=== PATIENT | male | born 1955 | race Caucasian/White ===

== ENCOUNTER 2017-06-14 07:58 | Observation (INO) | payer SELFPAY ==
[~2017-06-14] VITALS: Ht 172.7 cm; Wt 65.0 kg
[~2017-06-14 07:58] MED LIST: ALPR1TAB3 PO; ATOR10 PO; CARV6.25 PO; ECOT81TA2 PO; GABA100C4 PO; TAMS0.4C67 PO; XANA2TAB2 PO
[2017-06-14 08:04] VITALS: BP 128/85; PULSE 90; RESP 15; TEMP 98.2; O2SAT 98
[2017-06-14] MEDS ORDERED: SODIUM CHLOR 0.9% 1000 ML INJ 1,000 ML IV ONE (08:14)
[2017-06-14 08:15] VITALS: BP 142/63; PULSE 84; RESP 16; O2SAT 98
[2017-06-14] MEDS ORDERED: SODIUM CHLORIDE 0.9% FLUSH 10 ML FLUSH IVF PRN (08:15)
[2017-06-14 08:19] VITALS: BP_SYST 125; BP_SYST 142; BP_DIAS 60; BP_DIAS 63; RESP 15
--- NOTE | 2017-06-14 08:23 | PD ---
HPI Chief Complaint: Syncope Time Seen by Provider: 08:03 Travel History International Travel<30 days: No Contact w/Intl Traveler<30days: No Traveled to known affect area: No History of Present Illness HPI The patient is a 62-year-old male who presents to the emergency department after possible seizure or syncopal episode. The patient was at work earlier today, sitting down, when he suddenly became lightheaded and dizzy. The patient cannot recall falling to the floor, according to EMS the patient was caught prior to falling by a coworker. The patient was noted to have abrasions to the extensor surface of the left hand and the right elbow. He denies striking his head, but does not recall the event. He does complain of mild headache. He denied any palpitations, shortness of breath, nausea, vomiting, or diaphoresis prior to the event. He did have a similar episode in 2013, is unsure if he had a syncopal episode or seizure at that time, however, was not placed on antiseizure medication. He does not currently have a primary physician. He does complain of a mild headache as well as abrasions to left hand and right elbow. The patient states his last tetanus shot was in 2013. Symptoms are moderate. There are no current alleviating or exacerbating factors. He does state that the dizziness has improved since he arrived to the emergency department, however, he has not returned to baseline. He denies biting his tongue or any urinary incontinence with the event. According to EMS the patient also had a small amount of twitching after the event, unsure if this was related to syncope or seizure. PFSH Past Medical History Arthritis: Yes Autoimmune Disease: No Anxiety: Yes Depression: Yes Heart Rhythm Problems: No Cancer: No Cardiac Catheterization: No Cardiovascular Problems: No High Cholesterol: Yes Chest Pain: No Congestive Heart Failure: No Diabetes: No Diminished Hearing: No Endocrine: No Gastrointestinal Disorders: No Glaucoma: No Genitourinary: No Hepatitis: Yes ( C) Hiatal Hernia: No Hypertension: Yes Immune Disorder: No Musculoskeletal: Yes Neurologic: Yes Psychiatric: Yes Reproductive: No Respiratory: No Integumentary: No Migraines: Yes Seizures: Yes Sickle Cell Disease: No Thyroid Disease: No Past Surgical History Coronary Artery Bypass Graft: No Oral Surgery: Yes Thoracic Surgery: No Social History Alcohol Use: No Tobacco Use: Yes (6 cigs/day) Substance Use: No Allergies-Medications (Allergen,Severity, Reaction): Coded Allergies: morphine (Unverified Allergy, Severe, THROAT CLOSES, 10/17/16) codeine (Unverified Adverse Reaction, Mild, NAUSEA VOMITING, 10/17/16) Reported Meds & Prescriptions Reported Meds & Active Scripts Active No Active Prescriptions or Reported Medications Review of Systems Except as stated in HPI: all other systems reviewed are Neg HENT: Positive: Headaches, Lightheadedness Cardiovascular: Positive: Syncope, No: Chest Pain or Discomfort, Palpitations, Irregular Rhythm, Tachycardia, Diaphoresis Respiratory: No: Shortness of Breath Gastrointestinal: No: Nausea, Vomiting, Abdominal Pain Musculoskeletal: No: Weakness Neurologic: Positive: Dizziness, Syncope, Headache, No: Focal Abnormalities, Change in Mentation, Paresthesia, Seizures, Sensory Disturbance Physical Exam Narrative GENERAL: Awake, alert, pleasant 8-year-old male who appears his stated age and is in no acute respiratory distress. SKIN: Focused skin assessment warm/dry. Superficial abrasions over the MCPs of the left hand as well as extensor surface of the right elbow. HEAD: Atraumatic. Normocephalic. EYES: Pupils equal and round. No scleral icterus. No injection or drainage. ENT: No nasal bleeding or discharge. Mucous membranes pink and moist. No visible tongue laceration. NECK: Trachea midline. No JVD. CARDIOVASCULAR: Regular rate and rhythm. No murmur appreciated. Heart rate in the 80s. RESPIRATORY: No accessory muscle use. Clear to auscultation. Breath sounds equal bilaterally. GASTROINTESTINAL: Abdomen soft, non-tender, nondistended. No rebound tenderness. No visible urinary incontinence. MUSCULOSKELETAL: No obvious deformities. No clubbing. No cyanosis. No edema. Full range of motion of the upper and lower extremities. Abrasions of the extensor surface of the left hand over the MCPs as well as extensor surface of the right elbow. Back: No tenderness over the thoracic or lumbar vertebrae. Mild tenderness of the paravertebral muscles. NEUROLOGICAL: Awake and alert. No obvious cranial nerve deficits. Motor grossly within normal limits. Normal speech. Nonfocal. Oriented 4. Follows commands without difficulty. PSYCHIATRIC: Appropriate mood and affect; insight and judgment normal. Data Data Last Documented VS Vital Signs Date Time Temp Pulse Resp B/P (MAP) Pulse Ox O2 Delivery O2 Flow Rate FiO2 06/14/17 08:19 89 15 142/63 (89) 93 15 125/60 (81) 06/14/17 08:15 98 Room Air 06/14/17 08:04 98.2 Orders Orders Electrocardiogram (06/14/17 08:14) Complete Blood Count With Diff (06/14/17 08:14) Comprehensive Metabolic Panel (06/14/17 08:14) Magnesium (Mg) (06/14/17 08:14) Ct Brain W/O Iv Contrast(Rout) (06/14/17 08:14) Ecg Monitoring (06/14/17 08:14) Iv Access Insert/Monitor (06/14/17 08:14) Oximetry (06/14/17 08:14) Sodium Chloride 0.9% Flush (Ns Flush) (06/14/17 08:15) Sodium Chlor 0.9% 1000 Ml Inj (Ns 1000 M (06/14/17 08:14) Orthostatic Vital Signs (06/14/17 08:14) Admit Order (Ed Use Only) (06/14/17 10:40) Labs Laboratory Tests Test 06/14/17 08:20 White Blood Count 10.9 TH/MM3 Red Blood Count 5.44 MIL/MM3 Hemoglobin 15.7 GM/DL Hematocrit 45.8 % Mean Corpuscular Volume 84.1 FL Mean Corpuscular Hemoglobin 28.8 PG Mean Corpuscular Hemoglobin Concent 34.3 % Red Cell Distribution Width 14.1 % Platelet Count 277 TH/MM3 Mean Platelet Volume 7.9 FL Neutrophils (%) (Auto) 65.9 % Lymphocytes (%) (Auto) 21.2 % Monocytes (%) (Auto) 11.0 % Eosinophils (%) (Auto) 1.0 % Basophils (%) (Auto) 0.9 % Neutrophils # (Auto) 7.2 TH/MM3 Lymphocytes # (Auto) 2.3 TH/MM3 Monocytes # (Auto) 1.2 TH/MM3 Eosinophils # (Auto) 0.1 TH/MM3 Basophils # (Auto) 0.1 TH/MM3 CBC Comment DIFF FINAL Differential Comment Blood Urea Nitrogen 12 MG/DL Creatinine 1.11 MG/DL Random Glucose 135 MG/DL Total Protein 7.2 GM/DL Albumin 3.7 GM/DL Calcium Level 9.7 MG/DL Magnesium Level 2.4 MG/DL Alkaline Phosphatase 92 U/L Aspartate Amino Transf (AST/SGOT) 11 U/L Alanine Aminotransferase (ALT/SGPT) 17 U/L Total Bilirubin 0.3 MG/DL Sodium Level 139 MEQ/L Potassium Level 4.0 MEQ/L Chloride Level 107 MEQ/L Carbon Dioxide Level 17.9 MEQ/L Anion Gap 14 MEQ/L Estimat Glomerular Filtration Rate 68 ML/MIN MDM Medical Decision Making Medical Screen Exam Complete: Yes Emergency Medical Condition: Yes Medical Record Reviewed: Yes Interpretation(s) EKG reveals normal sinus rhythm with a rate 87. No ischemic changes or ectopy noted. No evidence of WPW or Brugada syndrome. Laboratory Tests Test 06/14/17 08:20 White Blood Count 10.9 TH/MM3 Red Blood Count 5.44 MIL/MM3 Hemoglobin 15.7 GM/DL Hematocrit 45.8 % Mean Corpuscular Volume 84.1 FL Mean Corpuscular Hemoglobin 28.8 PG Mean Corpuscular Hemoglobin Concent 34.3 % Red Cell Distribution Width 14.1 % Platelet Count 277 TH/MM3 Mean Platelet Volume 7.9 FL Neutrophils (%) (Auto) 65.9 % Lymphocytes (%) (Auto) 21.2 % Monocytes (%) (Auto) 11.0 % Eosinophils (%) (Auto) 1.0 % Basophils (%) (Auto) 0.9 % Neutrophils # (Auto) 7.2 TH/MM3 Lymphocytes # (Auto) 2.3 TH/MM3 Monocytes # (Auto) 1.2 TH/MM3 Eosinophils # (Auto) 0.1 TH/MM3 Basophils # (Auto) 0.1 TH/MM3 CBC Comment DIFF FINAL Differential Comment Blood Urea Nitrogen 12 MG/DL Creatinine 1.11 MG/DL Random Glucose 135 MG/DL Total Protein 7.2 GM/DL Albumin 3.7 GM/DL Calcium Level 9.7 MG/DL Magnesium Level 2.4 MG/DL Alkaline Phosphatase 92 U/L Aspartate Amino Transf (AST/SGOT) 11 U/L Alanine Aminotransferase (ALT/SGPT) 17 U/L Total Bilirubin 0.3 MG/DL Sodium Level 139 MEQ/L Potassium Level 4.0 MEQ/L Chloride Level 107 MEQ/L Carbon Dioxide Level 17.9 MEQ/L Anion Gap 14 MEQ/L Estimat Glomerular Filtration Rate 68 ML/MIN Last Impressions Head CT 06/14/17 0814 Signed Impressions: Service Date/Time: June 09:00 - CONCLUSION: No acute intracranial abnormality is identified. Jose Johnson MD Differential Diagnosis Differential diagnosis includes syncope, seizure, arrhythmia, electrolyte abnormality, vasovagal syncope, neurogenic syncope, aortic stenosis. Narrative Course IV was established, labs are drawn and sent, and the patient was placed on cardiac telemetry monitoring and continuous pulse oximetry monitoring. EKG was ordered and interpreted. Orthostatic vital signs were obtained. Stat CT of the brain was obtained. The patient was administered IV fluids. Blood work is unremarkable except for CO2 of 17.2. CT the brain is negative, no evidence of intracranial hemorrhage. The patient may have had seizure versus syncopal episode with hypoxia. Patient will be 23 hour observation to the on-call medical service. The patient may benefit from repeat echocardiogram, cardiac telemetry monitoring, possibly EEG. Physician Communication Physician Communication [facility] were paged for 23 hour observation. I discussed the patient with Dr. Garner who agrees with 23 hour observation. Diagnosis Primary Impression: Syncope Qualified Codes: R55 - Syncope and collapse Admitting Information Admitting Physician Requests: Observation Scripts No Active Prescriptions or Reported Meds Condition: Stable Kike Low MD Jun 14, 2017 08:23
[2017-06-14 08:34] LABS: AUTOMATED NEUTROPHIL # 7.2 TH/MM3 (1.8-7.7); BASOPHIL # 0.1 TH/MM3 (0-0.2); BASOPHIL % 0.9 % (0.0-2.0); EOSINOPHIL # 0.1 TH/MM3 (0-0.4); HEMATOCRIT 45.8 % (39.0-51.0); HEMOGLOBIN 15.7 GM/DL (13.0-17.0); LYMPH % 21.2 % (9.0-44.0); LYMPHOCYTE # 2.3 TH/MM3 (1.0-4.8); MEAN CELL VOLUME 84.1 FL (80.0-100.0); MEAN CORPUSCULAR HEMOGLOBIN 28.8 PG (27.0-34.0); MEAN CORPUSCULAR HGB CONC 34.3 % (32.0-36.0); MEAN PLATELET VOLUME 7.9 FL (7.0-11.0); MONOCYTE # 1.2 TH/MM3 (0-0.9); NEUT % 65.9 % (16.0-70.0); PLATELET COUNT 277 TH/MM3 (150-450); RED BLOOD COUNT 5.44 MIL/MM3 (4.50-5.90); RED CELL DISTRIBUTION WIDTH 14.1 % (11.6-17.2); WHITE BLOOD COUNT 10.9 TH/MM3 (4.0-11.0)
[2017-06-14 08:57] LABS: ALBUMIN 3.7 GM/DL (3.4-5.0); AST (GOT) 11 U/L (15-37); BICARBONATE 17.9 MEQ/L (21.0-32.0); BLOOD UREA NITROGEN 12 MG/DL (7-18); CALCIUM 9.7 MG/DL (8.5-10.1); CHLORIDE 107 MEQ/L (98-107); CREATININE 1.11 MG/DL (0.60-1.30); GLOMERULAR FILTRATION RATE 68 ML/MIN (>89); GLUCOSE,RANDOM 135 MG/DL (74-106); MAGNESIUM 2.4 MG/DL (1.5-2.5); SODIUM (NA) 139 MEQ/L (136-145)
[2017-06-14 08:58] LABS: ALT (GPT) 17 U/L (12-78)
[2017-06-14 09:01] LABS: ALKALINE PHOSPHATASE 92 U/L (45-117); TOTAL BILIRUBIN ADULT 0.3 MG/DL (0.2-1.0); TOTAL PROTEIN 7.2 GM/DL (6.4-8.2)
[2017-06-14 09:30] VITALS: BP 130/60; PULSE 64; RESP 16; O2SAT 98
--- NOTE | 2017-06-14 09:43 | RADRPT ---
EXAM DATE/TIME: 06/14/2017 09:00 [facility] COMPARISON: CT BRAIN W/O CONTRAST, May 25, 2014, 20:06. INDICATIONS : Altered mental status , possible seizure. RADIATION DOSE: 40.10 CTDIvol (mGy) MEDICAL HISTORY : Seizures. Hepatitis C. Hypertension. SURGICAL HISTORY : None. ENCOUNTER: Initial ACUITY: 1 day PAIN SCALE: 0/10 LOCATION: cranial TECHNIQUE: Multiple contiguous axial images were obtained of the head. Using automated exposure control and adj ustment of the mA and/or kV according to patient size, radiation dose was kept as low as reasonably a chievable to obtain optimal diagnostic quality images. DICOM format image data is available electro nically for review and comparison. FINDINGS: CEREBRUM: The ventricles are normal. No evidence of midline shift, mass lesion, hemorrhage or acute infarction . No extra-axial fluid collections are seen. POSTERIOR FOSSA: The cerebellum and brainstem are intact. The 4th ventricle is midline. The cerebellopontine angle i s unremarkable. EXTRACRANIAL: The visualized sinuses are clear. SKULL: The calvaria is intact. No evidence of skull fracture. CONCLUSION: No acute intracranial abnormality is identified. Jose Johnson MD on June 14, 2017 at 9:34 Board Certified Radiologist. This report was verified electronically.
[2017-06-14 12:00] VITALS: BP 128/58; PULSE 64; RESP 16; O2SAT 98
[2017-06-14] MEDS ORDERED: SODIUM CHLOR 0.9% 1000 ML INJ 1,000 ML IV SCH (12:03)
[2017-06-14] MEDS ORDERED: SODIUM CHLORIDE 0.9% FLUSH 10 ML FLUSH IV FLUSH PRN (12:15)
--- NOTE | 2017-06-14 12:44 | PD.PN.STU ---
Subjective Remarks The patient is a 62-year-old male admitted to 24 hour observation after a syncopal episode. 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 A coworker was near by and braced his fall to the floor. He awoke with EMS present. 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 He did not have incontinence with the episode. Denies tongue biting. He denies any residual dizziness, lightheadedness, headache, shortness of breath, nausea, vomiting, or diaphoresis. He reports a similar episode in 2013 with uncertainty if it was syncope or a seizure but he reports he took antiseizure medication for some time but discontinued due to intolerance and he did not follow-up with neurology. EMS noted some twitching of his extremities in transport that he states has resolved. PMHx: None - has not seen a primary care provider in 5 years due to loss of insurance. Denies any adult diagnosis or diseases. PSHx: Nasal septum surgery - approximately 2006 Allergies: Morphine (self reported) - hives Medications: None Family Hx: father living at 86 with no disease mother from metastatic lung cancer Social Hx: Worked at [employer] previously in the [employer] department. 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 Lives in [place]. 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 1/2 PPD smoker, 50 year smoking hx Objective Vitals Vital Signs Date Time Temp Pulse Resp B/P (MAP) Pulse Ox O2 Delivery O2 Flow Rate FiO2 06/14/17 08:19 89 15 142/63 (89) 93 15 125/60 (81) 06/14/17 08:15 84 16 142/63 (89) 98 Room Air 06/14/17 08:04 90 15 98 Room Air 06/14/17 08:04 98.2 90 15 128/85 (99) 98 Result Diagram: 06/14/17 0820 06/14/17819 Other Results Laboratory Tests Test 06/14/17 08:20 White Blood Count 10.9 TH/MM3 (4.0-11.0) Red Blood Count 5.44 MIL/MM3 (4.50-5.90) Hemoglobin 15.7 GM/DL (13.0-17.0) Hematocrit 45.8 % (39.0-51.0) Mean Corpuscular Volume 84.1 FL (80.0-100.0) Mean Corpuscular Hemoglobin 28.8 PG (27.0-34.0) Mean Corpuscular Hemoglobin Concent 34.3 % (32.0-36.0) Red Cell Distribution Width 14.1 % (11.6-17.2) Platelet Count 277 TH/MM3 (150-450) Mean Platelet Volume 7.9 FL (7.0-11.0) Neutrophils (%) (Auto) 65.9 % (16.0-70.0) Lymphocytes (%) (Auto) 21.2 % (9.0-44.0) Monocytes (%) (Auto) 11.0 % (0.0-8.0) Eosinophils (%) (Auto) 1.0 % (0.0-4.0) Basophils (%) (Auto) 0.9 % (0.0-2.0) Neutrophils # (Auto) 7.2 TH/MM3 (1.8-7.7) Lymphocytes # (Auto) 2.3 TH/MM3 (1.0-4.8) Monocytes # (Auto) 1.2 TH/MM3 (0-0.9) Eosinophils # (Auto) 0.1 TH/MM3 (0-0.4) Basophils # (Auto) 0.1 TH/MM3 (0-0.2) CBC Comment DIFF FINAL Differential Comment Blood Urea Nitrogen 12 MG/DL (7-18) Creatinine 1.11 MG/DL (0.60-1.30) Random Glucose 135 MG/DL (74-106) Total Protein 7.2 GM/DL (6.4-8.2) Albumin 3.7 GM/DL (3.4-5.0) Calcium Level 9.7 MG/DL (8.5-10.1) Magnesium Level 2.4 MG/DL (1.5-2.5) Alkaline Phosphatase 92 U/L (45-117) Aspartate Amino Transf (AST/SGOT) 11 U/L (15-37) Alanine Aminotransferase (ALT/SGPT) 17 U/L (12-78) Total Bilirubin 0.3 MG/DL (0.2-1.0) Sodium Level 139 MEQ/L (136-145) Potassium Level 4.0 MEQ/L (3.5-5.1) Chloride Level 107 MEQ/L (98-107) Carbon Dioxide Level 17.9 MEQ/L (21.0-32.0) Anion Gap 14 MEQ/L (5-15) Estimat Glomerular Filtration Rate 68 ML/MIN (>89) Imaging Last [address] 06/14/17 0814 Signed Impressions: Service Date/Time: June 09:00 - CONCLUSION: No acute intracranial abnormality is identified. Jose Johnson MD Objective Remarks GENERAL: This is a well-nourished, well-developed patient, in no apparent distress. SKIN: No rashes, ecchymoses or lesions. Cool and dry. Superficial abrasion over the MCPs of the left hand and extensor surface of the right elbow. HEAD: Atraumatic. Normocephalic. EYES: Pupils equal round and reactive. Extraocular motions intact. No scleral icterus. No injection or drainage. ENT:No nasal discharge or bleeding. Throat without erythema, tonsillar hypertrophy or exudate. Uvula midline. Airway patent. NECK: Trachea midline. No JVD or lymphadenopathy. Supple, nontender, no meningeal signs. CARDIOVASCULAR: Regular rate and rhythm without murmurs, gallops, or rubs. RESPIRATORY: Clear to auscultation. Breath sounds equal bilaterally. No wheezes , rales, or rhonchi. GASTROINTESTINAL: Abdomen soft, non-tender, nondistended. No hepato-splenomegaly , or palpable masses. No guarding. MUSCULOSKELETAL: Extremities without clubbing, cyanosis, or edema. No joint tenderness, effusion, or edema noted. No calf tenderness. NEUROLOGICAL: Awake and alert. Cranial nerves II through XII intact. Motor and sensory grossly within normal limits. Five out of 5 muscle strength in all muscle groups. Normal speech. Psych: Appropriate mood and affect A/P Assessment and Plan 1. 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 EKG normal, CT negative, Labs normal outside of CO2 17.2 likely due to hyperventilation. No signs of postictal. R/O seizure - EEG, MRI, Neurochecks q4hrs, consult neurology continue telemetry. Stephanie Perera M3 Jun 14, 2017 12:44
--- NOTE | 2017-06-14 15:27 | HHI.HP ---
HPI Service [facility] Primary Care Physician Gera Samson MD Admission Diagnosis Syncope versus seizure Diagnoses: Chief Complaint: Syncope Travel History International Travel<30 Days: No Contact w/Intl Traveler <30 Da: No Traveled to Known Affected Are: No History of Present Illness This is a 62-year-old male presents to [facility] after he sustained a syncopal episode. 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 Patient states that a coworker was nearby and braced his fall to the floor. The patient awoke with EMS present and states he was aware of all of his surroundings. The patient states that lately because of the changing jobs he has not been eating well and also probably not taking the right amount of fluids. The patient denies any urinary or bowel incontinence, denies chest pain, palpitations, denies tongue biting. At present he denies any chest pain, dizziness, lightheadedness, headache shortness of breath, chest pain or diaphoresis. The patient reports a similar episode in 2013 with uncertainty if it was a syncopal episode or seizure. Upon review of records at the time an EEG was done which was normal, neurology was consulted and recommended no antiseizure medication although patient states that he was indeed discharged with this, however I cannot find evidence of that. Patient did never follow up with neurology. EMS noticed some twitching of his extremities during transport which have resolved. Review of Systems As per HPI, other systems reviewed by me and negative. Past Family Social History Past Medical History Patient denies, however upon review of previous medical records it states patient has history of hypertension, seizure disorder, depression, hepatitis C and hypothyroidism. Past Surgical History Nasal surgery. Reported Medications No Active Prescriptions or Reported Medications Allergies: Coded Allergies: morphine (Unverified Allergy, Severe, THROAT CLOSES, 10/17/16) codeine (Unverified Adverse Reaction, Mild, NAUSEA VOMITING, 10/17/16) Family History father living at 86 with no disease mother from metastatic lung cancer Social History Worked at [employer] previously in the [employer] department. 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 Lives in [place]. 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 1/2 PPD smoker, 50 year smoking hx Physical Exam Vital Signs Vital Signs Date Time Temp Pulse Resp B/P (MAP) Pulse Ox O2 Delivery O2 Flow Rate FiO2 06/14/17 12:00 64 16 128/58 (81) 98 Room Air 06/14/17 09:30 64 16 130/60 (83) 98 Room Air 06/14/17 08:19 89 15 142/63 (89) 93 15 125/60 (81) 06/14/17 08:15 84 16 142/63 (89) 98 Room Air 06/14/17 08:04 90 15 98 Room Air 06/14/17 08:04 98.2 90 15 128/85 (99) 98 Physical Exam GENERAL: This is a well-nourished, well-developed patient, in no apparent distress. SKIN: No rashes, ecchymoses or lesions. Cool and dry. HEAD: Atraumatic. Normocephalic. No temporal or scalp tenderness. EYES: Pupils equal round and reactive. Extraocular motions intact. No scleral icterus. No injection or drainage. ENT: Nose without bleeding, purulent drainage or septal hematoma. Throat without erythema, tonsillar hypertrophy or exudate. Uvula midline. Airway patent. NECK: Trachea midline. No JVD or lymphadenopathy. Supple, nontender, no meningeal signs. CARDIOVASCULAR: Regular rate and rhythm without murmurs, gallops, or rubs. RESPIRATORY: Clear to auscultation. Breath sounds equal bilaterally. No wheezes , rales, or rhonchi. GASTROINTESTINAL: Abdomen soft, non-tender, nondistended. No hepato-splenomegaly , or palpable masses. No guarding. MUSCULOSKELETAL: Extremities without clubbing, cyanosis, or edema. No joint tenderness, effusion, or edema noted. No calf tenderness. Negative Homans sign bilaterally. NEUROLOGICAL: Awake and alert. Cranial nerves II through XII intact. Motor and sensory grossly within normal limits. Five out of 5 muscle strength in all muscle groups. Normal speech. Laboratory Laboratory Tests Test 06/14/17 08:20 06/14/17 13:28 White Blood Count 10.9 Red Blood Count 5.44 Hemoglobin 15.7 Hematocrit 45.8 Mean Corpuscular Volume 84.1 Mean Corpuscular Hemoglobin 28.8 Mean Corpuscular Hemoglobin Concent 34.3 Red Cell Distribution Width 14.1 Platelet Count 277 Mean Platelet Volume 7.9 Neutrophils (%) (Auto) 65.9 Lymphocytes (%) (Auto) 21.2 Monocytes (%) (Auto) 11.0 Eosinophils (%) (Auto) 1.0 Basophils (%) (Auto) 0.9 Neutrophils # (Auto) 7.2 Lymphocytes # (Auto) 2.3 Monocytes # (Auto) 1.2 Eosinophils # (Auto) 0.1 Basophils # (Auto) 0.1 CBC Comment DIFF FINAL Differential Comment Blood Urea Nitrogen 12 Creatinine 1.11 Random Glucose 135 Total Protein 7.2 Albumin 3.7 Calcium Level 9.7 Magnesium Level 2.4 Alkaline Phosphatase 92 Aspartate Amino Transf (AST/SGOT) 11 Alanine Aminotransferase (ALT/SGPT) 17 Total Bilirubin 0.3 Sodium Level 139 Potassium Level 4.0 Chloride Level 107 Carbon Dioxide Level 17.9 Anion Gap 14 Estimat Glomerular Filtration Rate 68 Troponin I LESS THAN 0.02 Result Diagram: 06/14/17 0820 06/14/[address] reviewed by me shows no acute intracranial disease. Caprini VTE Risk Assessment Caprini VTE Risk Assessment: No/Low Risk (score <= 1) Caprini Risk Assessment Model Point Value = 1 Point Value = 2 Point Value = 3 Point Value = 5 Age 41-60 Minor surgery BMI > 25 kg/m2 Swollen legs Varicose veins or History of unexplained or recurrent spontaneous Oral contraceptives or hormone replacement Sepsis (< 1 month) Serious lung disease, including pneumonia (< 1 month) Abnormal pulmonary function Acute myocardial infarction Congestive heart failure (< 1 month) History of inflammatory bowel disease Medical patient at bed rest Age 61-74 Arthroscopic surgery Major open surgery (> 45 min) Laparoscopic surgery (> 45 min) Malignancy Confined to bed (> 72 hours) Immobilizing plaster cast Central venous access Age >= 75 History of VTE Family history of VTE Factor V Leiden Prothrombin [id number] Lupus anticoagulant Anticardiolipin antibodies Elevated serum homocysteine Heparin-induced thrombocytopenia Other congenital or acquired thrombophilia Stroke (< 1 month) Elective arthroplasty Hip, pelvis, or leg fracture Acute spinal cord injury (< 1 month) Prophylaxis Regimen Total Risk Factor Score Risk Level Prophylaxis Regimen 0-1 Low Early ambulation 2 Moderate Order ONE of the following: *Sequential Compression Device (SCD) *Heparin 5000 units SQ BID 3-4 Higher Order ONE of the following medications: *Heparin 5000 units SQ TID *Enoxaparin/Lovenox 40 mg SQ daily (WT < 150 kg, CrCl > 30 mL/min) *Enoxaparin/Lovenox 30 mg SQ daily (WT < 150 kg, CrCl > 10-29 mL/min) *Enoxaparin/Lovenox 30 mg SQ BID (WT < 150 kg, CrCl > 30 mL/min) AND/OR *Sequential Compression Device (SCD) 5 or more Highest Order ONE of the following medications: *Heparin 5000 units SQ TID (Preferred with Epidurals) *Enoxaparin/Lovenox 40 mg SQ daily (WT < 150 kg, CrCl > 30 mL/min) *Enoxaparin/Lovenox 30 mg SQ daily (WT < 150 kg, CrCl > 10-29 mL/min) *Enoxaparin/Lovenox 30 mg SQ BID (WT < 150 kg, CrCl > 30 mL/min) AND *Sequential Compression Device (SCD) Assessment and Plan Problem List: (1) Syncope ICD Code: R55 - Syncope and collapse Plan: Troponin negative EKG reviewed by me showed sinus rhythm with a ventricular rate of 87, QTC of [address]-T changes. Check TSH Suspect syncopal episode likely secondary to orthostatic hypotension. Positive orthostatic vital signs. Check MRI of brain, EEG, carotid Dopplers ultrasound, 2D echocardiogram Neurology consultation (2) Orthostatic hypotension ICD Code: I95.1 - Orthostatic hypotension Plan: Likely secondary to dehydration. Continue IV fluids. (3) Metabolic acidosis ICD Code: E87.2 - Acidosis Plan: Possibly secondary to dehydration. Continue IV fluids Check BMP in a.m. (4) Hyperglycemia ICD Code: R73.9 - Hyperglycemia, unspecified Plan: Check hemoglobin A1c. Likely stress-induced after syncopal episode. (5) KASSIE (acute kidney injury) ICD Code: N17.9 - Acute kidney failure, unspecified Plan: Upon review of previous lab work the patient baseline creatinines ranges from 0.4-0.5 Creatinine on presentation 1.1 with a decreased GFR of 68. Continue IV fluids Monitor BUN and creatinine Suspect prerenal azotemia. (6) Hepatitis C ICD Code: B19.20 - Unspecified viral hepatitis C without hepatic coma Plan: Upon review of records the patient has an elevated hepatitis C RNA viral load that dates back to 2006 which was elevated. Hepatitis B negative. We will check liver ultrasound. LFTs within normal range. Continue to monitor BMP. Check hepatitis C viral load. Assessment and Plan DVT prophylaxis: SCDs Code Status Full code Discussed Condition With ED physician, patient. Problem Qualifiers (1) Hepatitis C: Ramírez Canales MD Jun 14, 2017 15:27
--- NOTE | 2017-06-14 17:05 | RADRPT ---
EXAM DATE/TIME: 06/14/2017 12:19 [place] COMPARISON: No previous studies available for comparison. INDICATIONS : Syncope. MEDICAL HISTORY : Hypercholesterolemia. Hypertension. Arthritis. Hep C. Seizures. Migraines. Depression. Anxiety. SURGICAL HISTORY : Blood transfusions. Nasal surgery. ENCOUNTER: Initial ACUITY: 1 day PAIN SCORE: 0/10 LOCATION: Bilateral neck PEAK SYSTOLIC VELOCITIES (cm/sec): ICA/CCA RATIO: Right: 0.9 Left: 1.4 ICA: Right: 90 Left: 133 CCA: Right: 100 Left: 99 ECA: Right: 124 Left: 136 VERTEBRAL: Right: 69 antegrade Left: 39 antegrade Elevated flow velocities and ICA/CCA ratios have been found to correlate with increased degrees of vessel stenosis, calculated as percentage of diameter relative to a normal segment of distal ICA/CCA FINDINGS: RIGHT CAROTID: No significant stenosis is visualized. The waveforms are within normal limits. LEFT CAROTID: No significant stenosis is visualized. The waveforms are within normal limits. VERTEBRAL ARTERIES: Antegrade flow is seen in both vertebral arteries. MISCELLANEOUS: None. CONCLUSION: 1. Mild plaque in the carotid arteries bilaterally with likely mild stenosis of the proximal left com mon carotid artery and left internal carotid artery origin. No hemodynamic significant stenosis on th e right. 2. Antegrade vertebral artery flow bilaterally. Benoit Richardson MD on June 14, 2017 at 17:00 Board Certified Radiologist. This report was verified electronically.
--- NOTE | 2017-06-14 18:50 | EKG ---
Date Performed: 06/14/2017 Time Performed: 08:15:14 PTAGE: 62 years EKG: Sinus rhythm Since the previous tracing, no significant change noted NORMAL ECG PREVIOUS TRACING : 05/25/2014 19.25 DOCTOR: Thierry Rosa Interpretating Date/Time 06/14/2017 18:46:45
--- NOTE | 2017-06-14 20:56 | MG ---
cc: Sammy Tineo MD EEG RECORD #[id number] DATE OF : 1955 7-9 Hz posterior rhythm, 20-40 microvolts. Myogenic fast frequency artifact in the frontal channels. Generalized slowing transition into drowsy state followed by stage I sleep with vertex waves. No lateralizing features. Good EEG variability and reactivity. Frequent arousals. Hyperventilation without any abnormal response. No photic stimulation performed. INTERPRETATION: Normal awake sleep electroencephalogram. Clinical correlation. Sammy Tineo MD MG/rt , 08:42 PM , 08:55 PM
[2017-06-14] MEDS ORDERED: SODIUM CHLORIDE 0.9% FLUSH 10 ML FLUSH IV FLUSH SCH (21:00)
== END 2017-06-14 16:35 | disposition left against medical advice (07) ==
LOC: NEPE 07:58 → NEDA 10:42
PROVIDERS: ADMIT Hospitalist; ATTEND Hospitalist
DX: R55 Syncope and collapse (principal); I95.1 Orthostatic hypotension; E87.2 Acidosis; S60.512A Abrasion of left hand, initial encounter; S50.312A Abrasion of left elbow, initial encounter; R25.3 Fasciculation; I10 Essential (primary) hypertension; E03.9 Hypothyroidism, unspecified; E78.00 Pure hypercholesterolemia, unspecified; R73.9 Hyperglycemia, unspecified; N17.9 Acute kidney failure, unspecified; B19.20 Unspecified viral hepatitis C without hepatic coma; G40.909 Epilepsy, unspecified, not intractable, without status epilepticus; F41.9 Anxiety disorder, unspecified; F32.9 Major depressive disorder, single episode, unspecified; M19.90 Unspecified osteoarthritis, unspecified site; F17.200 Nicotine dependence, unspecified, uncomplicated; W18.30XA Fall on same level, unspecified, initial encounter
CPT/HCPCS: 70450; 80053; 83735; 84484; 85025; 93005; 93880; 95819; 96360; 96361; 99285; G0378; J7030